=== PATIENT | female | born 1990 | race Caucasian/White ===

== ENCOUNTER 2019-03-09 11:15 | Emergency (ER) | payer MEDICAID, SELFPAY ==
[2019-03-09 11:17] VITALS: BP 126/68; PULSE 70; RESP 16; TEMP 36.2; O2SAT 96
--- NOTE | 2019-03-09 11:31 | W.ED.GENAD ---
Discharge Plan Disposition Patient Disposition: HOME Condition: Good Discharge Details Chief Complaint: DentalOral Clinical Impression: Pain, dental Primary Care Provider: Tamara Gibson ED Provider: Talon Mon Home Meds and New Rx's Prescriptions: New acetaminophen [Mapap Extra Strength] 500 MG tablet 1,000 mg PO Q6H 5 Days Qty: 60 RF: 0 ibuprofen [Motrin IB] 200 MG tablet 600 mg PO Q6H 5 Days Qty: 60 RF: 0 amoxicillin-pot clavulanate [Augmentin] 875-125 mg tablet 1 tab PO BID Qty: 14 RF: 0 No Action methadone 10 MG/ML concentrate 85 mg PO DAILY RF: 0 Discharge Instructions Instructions: Toothache (ED) Additional Instructions: Please take Tylenol and Motrin as needed for pain. Please take the antibiotic as directed. If you notice any worsening of your symptoms, or any new symptoms such as vomiting, diarrhea, fever, chills, shortness of breath, chest pain, numbness, weakness, or fainting , please return immediately to the emergency department for reevaluation. Please follow up with your dentist as soon as possible for reassessment and reevaluation. As always, it was a pleasure participating in your medical care today. Referrals: Tamara Gibson MD [Primary Care Provider] - Discharge Data Discharge Date/Time-TO BE ENTERED AT DEPARTURE: 03/09/19 11:36 Medical Decision Making This is a 28-year-old female who presents with evidence of pulpitis, dental caries and dental pain. Is been present for the last few days. No recent antibiotics. Exam demonstrates an old fractured tooth with notable caries, no evidence of significant fluctuance. No clinical evidence of meningitis, fever, or tachycardia. Dental block was performed and the patient had complete resolution of her pain. Additionally a small needle poke was made just lateral to the affected tooth, and there is no evidence of drainage. No evidence of significant abscess. Patient will be started on Augmentin for suspected pulpitis and infection. Discussed the importance of close follow-up with her dentist. I have extensively reviewed the treatment plan and discharge instructions with the patient. I have addressed all patient concerns at this time. The patient was made aware of what symptoms to monitor for that would warrant a return to the emergency department. Discussed the plan with the patient, they demonstrate verbal understanding and agreement with our assessment and plan at this time. Time out was taken to identify the correct patient, procedure, and site. Risks and benefits were discussed with the patient and consent was obtained. Direct pressure was held over the area prior to the procedure to reduce painful injection. 5 cc?s of Lidocaine 1% and Bupivacaine 0.25% was instilled into the right posterior angle of the jaw with a 27 gauge needle.Complete analgesia was obtained. The patient tolerated the procedure. There were no complications. HPI General Date/Time Provider Initiated Documentation: 03/09/19 11:15. HPI Narrative: This is a pleasant 28-year-old female with a past medical history of dental caries who presents today for right lower dental pain. She states that she broke her tooth off quite some time ago, supposed to get it pulled by a dentist. However when calling the dentist she did discuss the pain they recommended that she come in here for further evaluation as well as antibiotics. Patient denies any neck pain, fever, chills, chest pain or shortness of breath. Pain is only located in the lower jaw. Patient denies any current IV or illicit drug use, or any other associated complaints modifying factors. Pain is made worse with chewing. She has taken Tylenol and this is not improved her symptoms. Related Data Home Medications Medication Instructions Recorded Confirmed methadone 85 mg PO DAILY 02/06/18 03/09/19 acetaminophen [Mapap Extra 1,000 mg PO Q6H 5 Days #60 tab 03/09/19 Strength] amoxicillin-pot clavulanate 1 tab PO BID #14 tab 03/09/19 [Augmentin] ibuprofen [Motrin Ib] 600 mg PO Q6H 5 Days #60 tab 03/09/19 Previous Rx's Medication Instructions Recorded acetaminophen [Mapap Extra 1,000 mg PO Q6H 5 Days #60 tab 03/09/19 Strength] amoxicillin-pot clavulanate 1 tab PO BID #14 tab 03/09/19 [Augmentin] ibuprofen [Motrin Ib] 600 mg PO Q6H 5 Days #60 tab 03/09/19 Allergies Allergy/AdvReac Type Severity Reaction Status Date / Time clarithromycin [From Biaxin] Allergy Mild Hives Verified 03/09/19 11:21 latex Allergy Unknown BREAKS Verified 03/09/19 11:21 OUT HIVES General Stated Complaint: DentalOral HANNAH: 4 Review of Systems Review of Systems All systems reviewed & are unremarkable except as noted in HPI and below PFSH Social History Smoking/Tobacco Use Status: Current every day Tobacco Type: cigarettes Alcohol Intake: never Drug use: Current Sobriety Do you feel safe at home: Yes Do you feel safe in your relationship?: Yes Exam Narrative Exam Narrative: 1.Const: Well-nourished, Well-developed, appearing stated age 2.Eyes: PERRL, no conjunctival injection, and symmetrical lids. 3.ENT: Atraumatic external nose and ears. Moist MM. Neck: Symmetric, trachea midline, No thyromegaly. Patient demonstrates good movement of cervical neck. There is no nuchal rigidity, no nuchal tenderness. Patient is able to flex the neck without any difficulty or significant pain. Negative Kernig's and Brudzinski sign. Notably poor dentition throughout, old fractured tooth in the posterior right lower molars, notable dental caries. No evidence of significant fluctuance or draining abscess. 4.CVS: +S1/S2, No murmurs or gallops. Peripheral pulses 2+ and equal in all extremities. Brisk capillary refill in all extremities. 5.RESP: Unlabored respiratory effort. Clear to auscultation bilaterally. No wheezes rales or rhonchi 6.GI: Soft, Nontender/Nondistended, No hepatosplenomegaly. No guarding or rebound. 7.MSK: Normocephalic/Atraumatic, Extremities w/o deformity or ttp No cyanosis or clubbing, Normal movement of all extremities 8.Skin: Warm, Dry. No rashes or lesions. 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 Sensation grossly intact, no focal neurologic deficits. 10.Psych: (AAO) x3. Appropriate mood and affect Course Vital Signs Temperature 36.2 C L 03/09/19 11:17 Pulse 70 03/09/19 11:17 Respiratory Rate 16 03/09/19 11:17 Blood Pressure 126/68 03/09/19 11:17 Pulse Oximetry 96 03/09/19 11:17 Temperature 36.2 C L 03/09/19 11:17 Temperature Source Skin 03/09/19 11:17 Pulse 70 03/09/19 11:17 Respiratory Rate 16 03/09/19 11:17 Respiratory Effort Non-Labored 03/09/19 11:20 Blood Pressure 126/68 03/09/19 11:17 Blood Pressure Position Sitting 03/09/19 11:17 Pulse Oximetry 96 03/09/19 11:17 Oxygen Delivery Method Room Air 03/09/19 11:17 Oxygen Flow Rate 0 03/09/19 11:17
[2019-03-09 11:35] VITALS: BP 126/68; PULSE 70; RESP 16; TEMP 36.2; O2SAT 96
== END 2019-03-09 11:36 | disposition home or self-care (01) ==
PROVIDERS: Emergency Provider Student in an Organized Health Care Education/Training Program; PCP Family Medicine
DX: R68.84 Jaw pain (principal); K04.01 Reversible pulpitis
CPT/HCPCS: 64402

== ENCOUNTER 2020-04-11 22:05 | Inpatient (IN) | payer MEDICAID, SELFPAY ==
[2020-04-12] VITALS (15 sets, daily range): BP systolic 106–124; BP diastolic 69–91; PULSE 70–82; RESP 15–31; TEMP 35.8; O2SAT 100
--- NOTE | 2020-04-12 | RT.EKG_ITS ---
APPROVED REPORT Exam: Resting ECG Patient Location: I HR:82 bpm ECG Measurements Heart Rate 82 AXIS [place] 128 P 64 QRSd 82 QRS 53 QT 397 T 63 QTc 464 Conclusion Sinus rhythm...normal P axis, V-rate 60- 99 Normal Electrocardiogram
[2020-04-12] MEDS: Lactated Ringers 1,000 ML 125 ML IV (01:15)
[2020-04-12] MEDS: Tranexamic Acid 1,000 MG/10 ML VIAL 1000 MG IV (01:24)
--- NOTE | 2020-04-12 02:30 | UTER_PTH ---
PATIENT: SHASHANK PEREA LOC: ICU U#:[id number] AGE/SX: 29/F ROOM: ICU.222 RE04/12/[address]: Radhames Pena MD : 1990 BED: A DIS: 04/12/2020 SPEC #: [id number] RECD: 04/12/20 12:42 STATUS: JENNI REQ #: [id number] ALLYN: 04/12/20 02:[address]: Radhames Pena DEPT: Surgical Specimen RECD BY: Caren Vasquez ENTERED: 04/12/20 12:45 SP TYPE: UTER OTHR DR: Tamara Gibson Tissues: 1 - UTERUS W OR W/O OVARIES(NOT TUMOR/PROLAPSE) 2 - INDUCED Procedures: GROSS AND MICRO LEVEL 4 GROSS AND MICRO LEVEL 5 Comments: [id number]
--- NOTE | 2020-04-12 02:45 | DI.RAD_ITS ---
EXAM: XR ABDOMEN FLAT PLATE CLINICAL HISTORY: emergency surgery for septic , unresponsive TECHNIQUE: COMPARISON: No exams were available for comparison FINDINGS: Two views of the abdomen were obtained. NG tube in position. Prior cholecystectomy noted. Unremark able bowel gas pattern. Multiple surgical melissa overlie the pelvis. Left femoral venous catheter overlies the sacrum and on CT was seen to lie in vertebral venous plexus. IMPRESSION:
--- NOTE | 2020-04-12 03:00 | DI.RAD_ITS ---
EXAM: XR PORTABLE CHEST AP POST LINE CLINICAL HISTORY: line placement TECHNIQUE: COMPARISON: CR CHEST 2 VIEWS PA,LAT from 03/04/2013 FINDINGS: Portable supine AP chest. Endotracheal tube in good position. Right central venous catheter which o verlies the SVC. NG tube in place. No gross pulmonary consolidation. No cardiac enlargement. IMPRESSION:
[2020-04-12] MEDS: PROPOFOL 1,000 MG/100 ML BTL 31.2 MG IV (04:03)
--- NOTE | 2020-04-12 04:07 | DI.VRAD_ITS ---
PROCEDURE INFORMATION: Exam: XR Chest, 1 View Exam date and time: 04/12/2020 3:41 AM Age: 29 years old Clinical indication: Other: Line placement; Additional info: Emergency surgery, line placement TECHNIQUE: Imaging protocol: XR of the chest Views: 1 view. COMPARISON: No relevant prior studies available. FINDINGS: Limitations: Supine portable film with low lung volumes. Left costophrenic angle excluded. Tubes, catheters and devices: Midline endotracheal tube with its tip 5.0 CM above the justine. Right IJ catheter with its tip in the superior vena cava. Enteric tube is in place, coursing into the stomach and terminating below the field of view. Lungs: Increased central markings may be accentuated by low lung volumes. Early infiltrate/atelectasis not excluded. No other consolidative pneumonia. No overt pulmonary edema. Pleural space: No definite effusions. No pneumothorax. Heart/Mediastinum: Cardiac size not enlarged. Bones/joints: Unremarkable. IMPRESSION: 1. Low lung volumes. Prominent central markings. 2. Various support tubes and catheters appear satisfactorily positioned as described. Dictated and Authenticated by: Devante Hobson MD. Ordering:PRAVEEN Ricci MD
--- NOTE | 2020-04-12 04:09 | DI.VRAD_ITS ---
PROCEDURE INFORMATION: Exam: XR Abdomen, 1 View Exam date and time: 04/12/2020 3:09 AM Age: 29 years old Clinical indication: Other: Emergency surgery TECHNIQUE: Imaging protocol: XR of the abdomen. Views: Frontal supine view of the abdomen. 1 View. COMPARISON: No relevant prior studies available. FINDINGS: Skin melissa in the midline pelvis. Left femoral line noted. NG tube partially visualized in the distal stomach. Nonspecific mild gaseous distention in the visualized bowel. No radiopaque foreign body. Small amount of air in the right pelvis, presumed extraluminal IMPRESSION: Postsurgical changes in the pelvis as described with small amount of extraluminal air in the right pelvis suspected Additional findings as described No radiopaque foreign body detected Dictated and Authenticated by: Liang Hanson MD. Ordering:PRAVEEN Ricci MD
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
--- NOTE | 2020-04-12 04:29 | ROE_ITS ---
Date of service: 04/12/20 Time of Service: 04:29 Operative Note Operative Note DATE OF PROCEDURE: 04/12/20 PRE-OP DIAGNOSIS: 1. Septic 2. DIC POST-OP DIAGNOSIS: same PROCEDURE: 1. Dilation and evacuation 2. Conversion to abdominal hysterectomy SURGEON: Radhames Pena ASSISTING SURGEON: Lisbeth Mars ANESTHESIA: GETA ESTIMATED BLOOD LOSS: 4,000 PATHOLOGY: other (Uterus) COMPLICATIONS: None Patient was transported to: ICU Patient's condition: critical Findings: 1. Enlarged 14 week uterus. 2. Significant uterine atony with hemorrhage Procedure Description: The patient was taken to the operating room and after adequate general anesthesia was obtained the patient was placed in lithotomy position. The patient was prepped and draped in usual sterile manner. The patient was placed in lithotomy position. A weighted speculum was placed in the vagina with good visualization of the cervix. The cervix was grasped with a Allis forceps and was dilated with Rojas dilators. An 11 [place] curved suction curette was able to be advanced through the cervix. Suction apparatus was activated and the curette was rotated. Copious products of conception were retrieved. The uterine cavity was explored with ring forceps and tissue as well as placental tissue were extracted with a ring forceps. Several passes were made with a sharp curette and suction curette until no additional products were retrieved. An ultrasound was used to confirm complete uterine evacuation. Significant hemorrhage ensued during this process and bleeding was unable to be controlled. Attempt was made at placement of a Elburn balloon. The patient was administered tranexamic acid, Methergine, and Hemabate with no response. After numerous attempts to control bleeding vaginally decision was made to proceed with laparotomy and hysterectomy. The abdomen was prepped with chlorhexidine. The patient was redraped. A vertical laparotomy incision was made and taken down to the underlying fascia. The fascia was incised with the scalpel and the incision carried superiorly and inferiorly with Rothman scissors. The rectus were divided in the midline and the peritoneum was entered sharply. The peritoneal incision was also extended superiorly and inferiorly. An Emre retractor was placed and bowel was packed into the upper abdomen with moist laparotomy sponges. The uterus was grasped elevated with a single-tooth tenaculum. Dissection was carried across the suspensory ligament with the LigaSure device and carried across the round ligament down to the level of the uterine vessels. A similar dissection carried out on the opposite side. The bladder flap was dissected with Metzenbaum scissors and the bladder was reflected inferiorly. The uterine vessels were taken bilaterally with the LigaSure device. The upper vagina distal to the cervix was crossclamped with Zeppelin clamps. The uterus and cervix were amputated with the Bovie cautery. The vaginal cuff was closed with interrupted [id number] sutures of 0 Vicryl. Excellent hemostasis was noted. All pedicles were reexamined and were noted to be hemostatic. All laparotomy sponges were removed and the retractor was removed. The fascia was closed with a running stitch of #1 looped PDS. The skin was closed with melissa and abdominal dressing applied. Due to inability to acquire a complete instrument count prior to the beginning of this procedure abdominal films were obtained confirming no retained surgical foreign bodies. Conclusion of the procedure NG tube and central line were placed by anesthesia. The patient was transfused 6 units of packed red cells, 6 units of FFP and 2 units of cryoprecipitate. The patient was transferred to the ICU in critical condition.
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
[2020-04-12 04:45] LABS: BE -5.9 mmol/L (-3-3); HCO3 20 mmol/L (22-28); pCO2 34 mmHg (34-47); pH 7.36 (7.35-7.45)
[2020-04-12 04:47] LABS: FIO2 100 %; Site Left Femoral; pO2 > 550 mmHg (83-108); sO2 > 99 % (94-98)
[2020-04-12 04:56] LABS: Absolute Basophil Count 0.03 10^3/uL (0.0-0.2); Absolute Monocyte Count 0.14 10^3/uL (0.1-0.8); Basophils % 0.3; HCT 33.9 % (36.0-46.0); Immature Grans % 0.9; MCH 29.7 pg (27.0-33.0); MCHC 32.4 % (32.0-36.0); MCV 91.6 fL (80-95); MPV 10.7 fL (8.0-11.0); Monocytes % 1.2; Neutrophils % 96.6; Nucleated RBC 0 %; Platelet Count 41 10^3/uL (130-400); RDW 14.6 % (11.7-14.6); RDW-SD 48.9 fL; WBC 11.55 10^3/uL (4.4-10.8)
[2020-04-12 05:29] LABS: ALT 48 U/L (14-59); AST 105 U/L (15-37); Albumin 2.1 g/dL (3.4-5.0); Alkaline Phosphatase 67 U/L (46-116); Anion Gap 10.7 mmol/L (3-11); BUN 15 mg/dL (7-18); Bilirubin, Total 4.1 mg/dL (0.2-1.0); CO2 21.3 mmol/L (21.0-32.0); CREATININE 1.16 mg/dL (0.55-1.02); Calcium 7.2 mg/dL (8.5-10.1); Chloride 107 mmol/L (98-107); Estimated GFR 56.04 (mL/min/1.73m2); Glucose 141 mg/dL (74-106); Potassium 3.4 mmol/L (3.5-5.1); Sodium 139 mmol/L (136-145); Total Protein 4.4 g/dL (6.4-8.2)
[2020-04-12 05:41] LABS: Prothrombin Time 14.4 sec (9.3-11.0)
[2020-04-12 05:50] LABS: Absolute Lymphocyte Count 0.12 10^3/uL (1.2-3.4); Absolute Neutrophil Count 11.16 10^3/uL (1.2-6.7)
[2020-04-12 05:52] LABS: Diff Comment Agrees w/ Instrument
[2020-04-12 06:03] LABS: INR 1.4 (0.9-1.1)
[2020-04-12] MEDS: PROPOFOL 1,000 MG/100 ML BTL 1 MG IVPB (06:11)
--- NOTE | 2020-04-12 06:30 | DI.CT_ITS ---
EXAM: CT CHEST PE ABD PELVIS W CLINICAL HISTORY: HYPOTENSIVE, DEMISE,SEPTIC TECHNIQUE: COMPARISON: No exams were available for comparison FINDINGS: CT examination of the chest, abdomen and pelvis was performed with intravenous infusion 100 cc of Omn ipaque 350. There is significant motion artifact on this examination. No gross central pulmonary embolus identified. No other focal vascular pathology of the thorax. Burt gs are predominantly clear with a couple of questionable very tiny areas of possible ground-glass opa city or consolidation in the right lung. No pleural effusion or pneumothorax. No mediastinal or hil ar adenopathy. Liver is unremarkable appearance except for diffuse nonspecific periportal edema. Prior cholecystect nestor noted. No biliary dilatation. Unremarkable appearance of the pancreas as visualized. Spleen gr ossly unremarkable. Adrenals and kidneys are unremarkable. No urinary tract calcification or obstruction. Chacon cathete r noted urinary bladder which is collapsed. Mild small bowel distension, left lower quadrant, large amount of stool in colon consistent with cons tipation. Abdominal aorta and major visceral branches are normal. There is a venous catheter with left inguinal insertion which extends to the perivertebral venous ple xus on the left. There is a nonviable intrauterine gestation with heterogeneously enhancing placenta. IMPRESSION: No gross pulmonary embolic disease identified on limited study. Nonviable fetus with heterogeneously enhancing placenta, there is reportedly clinically a septic abor tion. Placement of left venous catheter tip of which lies in left perivertebral venous plexus, this should be withdrawn. Questionable finding of tiny ground-glass opacities right lung, appropriate follow-up requested to ru le out pneumonia.
[2020-04-12] MEDS: Omnipaque 350 MG/ML 100 ML BTL IV (06:48)
[2020-04-12] MEDS: Normal Saline - Diluent 50 ML VIAL IV (06:50)
--- NOTE | 2020-04-12 06:54 | RESPIRATORY ---
Addendum entered by Linda Dubois 04/12/20 07:36: RT first call at 10:15pm on Apr 11 then again on Apr 12 at 3:15am Original Note: Respiratory called for at 10:15pm for patient who had been dropped off at ER by boyfriend. When RT arrived, patient was on 8L NC SpO2 100%, very agitated, lethargic, diaphoretic with cold clammy skin. Ambu bag already set up by nursing and RT set up suction. At 11pm, patient titrated down to 3L NC SpO2 100% as complaining about NC hurting nose. Patient still lethargic and agitated, when to CT on RA with SpO2 ranging from 98%-100% the whole time. Once back in room, patient left on RA but NC still on patient in case needed. Dr. Addison told RT all set to leave as he wasn't intubating. RT called again at 3:15am to set up ventilator for patient, settings Vt 390 ml RR 20 Peep 5 FiO2 100%. Patient was very agitated and fighting the vent with high RR and high minute volume. Once patient sedated and paralyzed by anesthesia, was able to better control patient on vent. Prior to sedation, ABG pulled from femural line by Dr. Monroe as unable to take blood from radial or brachial arteries on either side of patient. FiO2 reduced per ABG and patient settled on vent setting for transport to [facility] by Terri.
[2020-04-12 07:39] LABS: Abs Immature Grans 0.02 10^3/uL (0.0-0.06); Absolute Basophil Count 0.02 10^3/uL (0.0-0.2); Absolute Eosinophil Count 0.02 10^3/uL (0.0-0.7); Absolute Lymphocyte Count 0.12 10^3/uL (1.2-3.4); Absolute Monocyte Count 0.08 10^3/uL (0.1-0.8); Absolute Neutrophil Count 7.74 10^3/uL (1.2-6.7); Basophils % 0.3; Eosinophils % 0.3; HCT 36.6 % (36.0-46.0); HGB 12.2 g/dL (11.2-15.7); Immature Grans % 0.3; Lymphocytes % 1.5; MCH 31.3 pg (27.0-33.0); MCHC 33.3 % (32.0-36.0); MCV 93.8 fL (80-95); MPV 10.2 fL (8.0-11.0); Neutrophils % 96.6; Nucleated RBC 0 %; RDW-SD 47.8 fL
[2020-04-12 07:51] LABS: Diff Comment Manual Differential
[2020-04-12 07:55] LABS: Platelet Count 84 10^3/uL (130-400)
[2020-04-12 08:03] LABS: Lactate 5.6 mmol/L (0.6-1.4)
[2020-04-12 08:14] LABS: Albumin 2.5 g/dL (3.4-5.0); Alkaline Phosphatase 158 U/L (46-116); BUN 15 mg/dL (7-18); Bilirubin, Total 1.7 mg/dL (0.2-1.0); CREATININE 1.32 mg/dL (0.55-1.02); Calcium 8.5 mg/dL (8.5-10.1); Estimated GFR 48.28 (mL/min/1.73m2); Glucose 150 mg/dL (74-106); Sodium 139 mmol/L (136-145); Total Protein 5.2 g/dL (6.4-8.2)
[2020-04-12 08:22] LABS: ALT 90 U/L (14-59); AST 225 U/L (15-37); Anion Gap 14.6 mmol/L (3-11); CO2 19.4 mmol/L (21.0-32.0); Chloride 105 mmol/L (98-107); Potassium 2.8 mmol/L (3.5-5.1)
[2020-04-12 08:52] LABS: INR 3.1 (0.9-1.1); PTT Activated 38.5 sec (21.0-31.4); Prothrombin Time 30.1 sec (9.3-11.0)
[2020-04-12 13:20] LABS: COVID-19 RT-PCR UVMMC Result Negative (Negative)
--- NOTE | 2020-04-12 17:45 | NUR.NOTE ---
Addendum entered by Sherri Mijares 04/12/20 17:56: Family was attempted to be contacted and the surgeon was able to reach out to the uncle but was not able to speak with him. The uncle called back and opted to call [facility] [place] as we were limited with [employer] to give information. Boyfriend was attempted recontact and I did not hear from him. Original Note: The patient arrived from the OR after emergent surgery at 0340. The patient is intubated and being bagged by anesthesia. RT Linda Ray present in room at arrival. Patient arrived in ICU bed on ICU monitor with stable VS. I took nursing report from Raquel Aceves RN as RT and anesthesia addressed switching airway to ventilator. I assessed the patient head to toe and the patient was starting to wake up. Yordy Monroe gave a total of 5mg versed while I pulled and hung STAT verbal order of propofol. Restraints were ordered and placed for patient safety as she was trying to grab at her lines. CVP was attached and the Maria Del Rosario Hugger started as patient felt cold, T 35.8. Multiple RNs attempted to feel for an arterial draw for ABG with no success. Dr. Monroe guy from a femoral stick and removed the femoral line that had been placed in the ER. I hung an additional bag of blood and 2 bags of FFP. Pt's VS remained stable except requiring a paralytic for over breathing/fighting the vent despite being on 100mcg/kg/min of propofol. [facility] [place] called with a bed placement and the patient was prepared for urgent transfer. Dr. Taylor and Dr. Monroe remained in the unit/room from patient arrival to patient departure at 0530. Patient care completed during downtime before arriving to the unit. Blood transfusions completed on paper chart. Nursing Note:
--- NOTE | 2020-04-13 09:53 | PDOC.ANES ---
Date of service: 04/12/20 Time of Service: 02:12 Anesthesia Note Art line procedure note: Right wrist was prepped with chlorhexidine, radial pulse was felt, 20 ga arrow cath advanced without return of blood. An ultrasound was obtained and with a sterile probe cover the radial artery was identified, and needle was advanced through the vessel, needle was removed, and catheter was slowly withdrawn without return of blood. This was repeated once more (3 total attempts) without success. Pressure was held, and bleeding was under control. Attempts aborted due to cuff pressures working fair.
== END 2020-04-12 05:30 | disposition short-term general hospital (02) | DRG 853 ==
LOC: ER 04-12 02:10 → SUR 04-12 02:13 → ICU 04-12 04:37
PROVIDERS: Surgery; Admitting Provider Obstetrics & Gynecology; Emergency Provider Emergency Medicine; PCP Family Medicine; Visit Provider Obstetrics & Gynecology
PROC: 0UT90ZZ Resection of Uterus, Open Approach (ICD-10-PCS; CPT 59830; principal; 2020-04-12 01:30)
PROC: 10D17ZZ Extraction of Products of Conception, Retained, Via Natural or Artificial Opening (ICD-10-PCS; CPT 59841; 2020-04-12 01:30)
DX: A41.9 Sepsis, unspecified organism; D65 Disseminated intravascular coagulation [defibrination syndrome]; O03.37 Sepsis following incomplete spontaneous abortion; F11.23 Opioid dependence with withdrawal; N99.61 Intraoperative hemorrhage and hematoma of a genitourinary system organ or structure complicating a genitourinary system procedure; F14.10 Cocaine abuse, uncomplicated; Z78.1 Physical restraint status
CPT/HCPCS: 59830; 58150; 36430; 51702; 71045; 71275; 74177; 80053; 80307; 81025; 82805; 86850; 86900; 86901; 86920; 88305; 93005; 96361; 96374; 96375; 99223; 99291; 99292; U0003; 36600; 74018; 81003; 83605; 85025; 85610; 85730; 88304; 88307; 93010; 94002; J0690; J2001; J2210; J2250; J2370; J2704; J3490; P9012; P9016; P9059

== ENCOUNTER 2020-05-03 00:54 | Outpatient (CLI) | payer MEDICAID, SELFPAY | END 2020-05-03 01:14 | PROVIDERS: PCP Family Medicine; Visit Provider Obstetrics & Gynecology | DX: R69 Illness, unspecified (principal) ==

== ENCOUNTER 2020-05-12 04:08 | Outpatient (CLI) | payer MEDICAID, SELFPAY ==
--- NOTE | 2020-05-12 14:05 | DI.US_ITS ---
APPROVED REPORT EXAM: Comprehensive 2D, Doppler, and color-flow Echocardiogram Patient Location: Out-Patient Mobile Therapist: Karen Palmer RDCS (AE) Indications: Recurrent fevers, Murmur, H/X of Heroin use Other Information Study Quality: Adequate Conclusion Left Ventricle : The left ventricle is normal size. The left ventricular systolic function is normal. The left ventricular ejection fraction is within the normal range. There is normal left ventricular wall thickness. There is normal LV segmental wall motion. The left ventricular diastolic function is normal. LVEF is 60%. Right Ventricle : The right ventricle is normal size. The right ventricular systolic function is norm al. The RVSP is 25.7 mmHg. Atria : The left atrium size is normal. The right atrium size is normal. Valves: There are no hemodynamically significant valvular lesions. There are no valvular vegetations visualized. Great Vessels : The aortic root is normal in size. Ascending aorta is not well visualized. Aortic arc h is normal in caliber. IVC is normal in size and collapses >50% with inspiration. There is no prior study available for comparison. Wall motion Left Ventricle The left ventricle is normal size. The left ventricular systolic function is normal. The left ventric ular ejection fraction is within the normal range. There is normal left ventricular wall thickness. T here is normal LV segmental wall motion. The left ventricular diastolic function is normal. There is no ventricular septal defect visualized. LVEF is 60%. Right Ventricle The right ventricle is normal size. The right ventricular systolic function is normal. The RVSP is 25 .7 mmHg. Atria The left atrium size is normal. The right atrium size is normal. The interatrial septum is intact wit h no evidence for an atrial septal defect. Aortic Valve The aortic valve is normal in structure. Aortic valve is trileaflet. There is no aortic valvular sten osis. No aortic regurgitation is present. Mitral Valve The mitral valve is normal in structure. No evidence of mitral valve stenosis. Trace mitral regurgita tion. Tricuspid Valve The tricuspid valve is normal in structure. There is no tricuspid valve stenosis. Trace to mild tricu spid regurgitation. Pulmonic Valve The pulmonary valve is normal in structure. There is no pulmonic valvular stenosis. Trace pulmonic re gurgitation. Great Vessels The aortic root is normal in size. Ascending aorta is not well visualized. Aortic arch is normal in c aliber. IVC is normal in size and collapses >50% with inspiration. Pericardium There is no pericardial effusion. 2D Dimensions IVSD d PLAX 0.73 cm F: 0.6-1.0 LV Vol A2C d MOD 120.2 mL LVPW d PLAX 0.74 cm F: 0.6 - 1.0 LV Vol A4C d MOD 98.5 mL LVID d PLAX 4.24 cm F: 3.8 - 5.2 LA vol/ BSA A2C s A-L 25.1 mL/m2 LVDs 2.85 cm F: 2.2 - 3.5 LA vol/ BSA A4C s A-L 31.6 mL/m2 Ao Root d 2.58 cm F: 2.7 - 3.3 LA Vol/ BSA Biplane s A-L 29.8 mL/m2 RA Area A4C 10.73 cm2 LA Area A4C s MOD 18.06 cm2 RA Vol/ BSA A4C s A-L 14.4 mL/m2 LA Area A2C s MOD 15.21 cm2 Ao Asc Diam d 2.84 cm F: 2.3 - 3.1 LV EF A4C MOD 58.5 % LV EF Teichholz 61.3 % LV EF A2C MOD 59.4 % LVEF (Aceves's) 56.40 % F: 54 - 74 LV EF Biplane MOD 56.4 % LV Volume 90.87 mL F: 46 - 106 SV 64.81 mL LV Volume Index 52.83 mL/m2 F: 29 - 61 SV Index 37.70 mL/m2 LV Vol Biplane MOD 114.9 mL FS 32.55 % M-Mode TAPSE 2.90 cm (M/F) >1.7 LV Diastology MV E' medial 0.129 (>0.07 m/s) E/A Ratio 1.3 LV E/e MED 10.25 (<14) MV E Vmax 1.33 (0.4-1.3 m/s) MV E' lateral 0.165 (>0.1 m/s) MV A Vmax 1.00 (0.4-1.3 m/s) LV E/e LAT 8.05 (<14) MV E/A Ratio 1.29 MV E/E' medial 10.30 MV E/E' lateral 8.06 Aortic Valve LVOT Area 3.05 cm2 AoV Area Vmax 2.54 cm2 LVOT Vmax 1.39 m/s AoV Area/ BSA (Vmax) 1.48 cm2/m2 LVOT Mean John. 0.88 m/s WILBUR Mean John. 2.22 cm2 LVOT Peak Grad 7.7 mmHg WILBUR Mean John. Index 1.29 cm2/m2 LVOT Mean Grad 3.7 mmHg LVOT VTI 0.295 m LVOT Diam s 1.95 cm AoV Vmax 1.67 m/s Velocity Ratio 0.83 AoV Mean John. 1.21 m/s AoV Peak Grad 11.2 mmHg LVOT SV 90.21 mL AoV Mean Grad 6.5 mmHg AoV VTI 0.312 m AoV Area VTI 2.89 cm2 AoV Area/ BSA (VTI) 1.68 cm/m2 Mitral Valve MV DT 196 (160-240 msec) MV PHT 57 msec MV Area PHT 3.87 cm2 Pulmonary Valve PV Vmax 1.88 (0.5-1.5 m/s) RVOT Peak Gr. 3.43 mmHg PV Peak Grad 14.1 mmHg RVOT Mean Gr. 1.70 mmHg PV Mean Grad 7.6 mmHg RVOT VTI 0.201 m PV VTI 0.397 m RVOT Vmax 0.93 m/s Tricuspid Valve TR Peak Grad 22.7 mmHg TR Vmax 2.38 m/s RA Pressure 3.00 mmHg RVSP (TR) 25.7 mmHg
== END 2020-05-12 04:28 ==
PROVIDERS: PCP Family Medicine; Visit Provider Obstetrics & Gynecology
DX: R01.1 Cardiac murmur, unspecified (principal); R50.9 Fever, unspecified; F11.11 Opioid abuse, in remission
CPT/HCPCS: 93306

== ENCOUNTER 2020-05-18 00:38 | Outpatient (CLI) | payer MEDICAID, SELFPAY ==
[2020-05-18] MEDS: Omnipaque 350 MG/ML 100 ML BTL IJ (10:24)
[2020-05-18] MEDS: Normal Saline - Diluent 50 ML VIAL IV (10:25)
--- NOTE | 2020-05-18 10:25 | DI.CT_ITS ---
EXAM: CT ABDOMEN PELVIS W CLINICAL HISTORY: POSTOPERATIVE FEVER,R50.82,INCREASING ABD PAIN. TECHNIQUE: Imaging Protocol: Axial computed tomography images with coronal and sagittal reformatted images were created and reviewed CONTRAST MATERIAL: Intravenous: Omnipaque 350 Contrast volume:100 cc Oral: yes COMPARISON: CT CT CHEST PE ABD PELVIS W from 04/11/2020 FINDINGS: ABDOMEN: Lung Bases: Normal where visualized. Liver: Normal density. No measurable mass. Gallbladder and biliary tract: Status post cholecystectomy. No biliary dilatation. Pancreas: Normal density, no abnormal calcifications or inflammatory process. Spleen: Normal. Kidneys: Normal size, contour and axis. No radiodense stones or obstructive uropathy. No masses seen. Adrenal glands: No masses seen. Abdominal Aorta: Abdominal portion non-dilated. PELVIS: Bladder: Symmetric distention, no gross wall thickening. Bowel: No obstruction or bowel wall thickening. Normal appendix. Increased quantity of stool. Peritoneal cavity: Trace fluid in the lower pelvis. No evidence an abscess. Bones: Within normal limits. Reproductive organs: Status post hysterectomy. Ovaries within normal limits. Soft tissues: Lower ant erior midline surgical scar. No surrounding fluid collection or inflammation. Lymph nodes: Unremarkable. Impression: Status post hysterectomy. Trace amount of fluid is seen in the pelvis. No abscess. Increased stool .. RADIATION DOSE DELIVERED: Total DLP DATA REPOSITORY: All CT scans at this facility are submitted to the National Radiology Data Registry (NRDR) Dose Index Registry (DIR) with the [employer] (ACR). RADIATION OPTIMIZATION: All CT scans at this facility use at least one of these dose optimization te chniques: automated exposure control; mA and/or kV adjustment per patient size (includes targeted exa ms where dose is matched to clinical indication); or iterative reconstruction.
== END 2020-05-18 00:58 ==
PROVIDERS: PCP Family Medicine; Visit Provider Obstetrics & Gynecology
DX: R50.82 Postprocedural fever (principal); Z90.710 Acquired absence of both cervix and uterus; R10.9 Unspecified abdominal pain
CPT/HCPCS: 74177; J3490

== ENCOUNTER 2020-08-17 19:53 | Emergency (ER) | payer MEDICAID, SELFPAY ==
[2020-08-17 19:58] VITALS: BP 148/88; PULSE 129; RESP 18; TEMP 36.3; O2SAT 97
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
--- NOTE | 2020-08-17 20:30 | RT.EKG_ITS ---
APPROVED REPORT Exam: Resting ECG Patient Location: E HR:73 bpm ECG Measurements Heart Rate 73 AXIS RI 133 P 47 QRSd 88 QRS 44 QT 418 T 47 QTc 462 Conclusion Sinus rhythm...normal P axis, V-rate 60- 99 Probable left atrial enlargement...P >50mS, <-0.10mV V1 Normal Marine Normal QTc There are no significant changes compared to prior EKG performed on 04/11/2020 at 22:50.
[2020-08-17] MEDS: Fluconazole 150 MG TAB PO ×2 (20:56)
== END 2020-08-17 21:01 | disposition home or self-care (01) ==
LOC: ER 20:57
PROVIDERS: Emergency Provider Emergency Medicine; PCP Family Medicine
DX: B37.3 Candidiasis of vulva and vagina (principal); F14.10 Cocaine abuse, uncomplicated; F11.10 Opioid abuse, uncomplicated
CPT/HCPCS: 93005; 99284; 93010